=== PATIENT | male | born 1975 | race Two or more races ===

== ENCOUNTER → 2017-04-23 | Outpatient (CLI) | payer OTHER ==
[~2017-04-23] MED LIST: GADOBUTROL 7.5 MMOL/7.5 ML VIAL INT ART ONE; IOHEXOL 300 MG/ML 50 ML VIAL. INT ART ONE; LIDOCAINE 1% Multi-Dose 20 ML VIAL. ID ONE
--- NOTE | 2017-04-23 16:38 | KCIC ---
Examination: MR arthrogram left shoulder HISTORY: History of left shoulder pain, decreased range of motion COMPARISON: None available TECHNIQUE: Multiplanar, multisequence MR imaging of the left shoulder performed after arthrogram injection. Findings: The long head of the biceps tendon is within the bicipital groove. The attachment of the long head of the biceps tendon to superior labral anchor grossly appears intact. The attachment of the subscapularis tendon grossly appears intact. There is subtle increased T2 signal identified in the undersurface fibers of the anterior most fibers of the supraspinatus tendon measuring 8 mm in transverse dimension and 9 mm in AP dimension likely partial undersurface tear. No evidence of full-thickness rotator cuff tear identified. Mild acromioclavicular joint osteoarthrosis. The acromion is type II. The anterior aspect of the acromion abuts the superior aspect of the supraspinatus tendon. There is minimal superficial fraying of the superior labrum. Mild prominent appearing sublabial recess in the superior labrum. The muscle bulk grossly appears unremarkable. Fat is present within the rotator interval. IMPRESSION: 1. Subtle partial undersurface tear of the anterior fibers of the supraspinatus tendon measuring 9 mm. 2.The anterior aspect of the acromion abuts the superior aspect of the supraspinatus tendon. Correlate for impingement . 3. Minimal fraying of the superior labrum. Electronically signed by: Todd Estrada MD (04/23/2017 4:35 PM) [id number]
--- NOTE | 2017-04-23 17:11 | KCIC ---
Examination: Left shoulder arthrogram HISTORY: History of left shoulder pain, weakness COMPARISON: None available TECHNIQUE: Patient was brought to the fluoroscopic suite. Patient was explained the procedure. Informed consent was obtained after explaining the risks and benefits to the patient. The region of the left shoulder was marked. The region was prepped and draped in sterile fashion. Local anesthesia was achieved with 1 percent lidocaine. A 22-gauge spinal needle was advanced into the left shoulder joint under fluoroscopic guidance. Intra-articular injection of 12 mL of mixture of 5 mCi of lidocaine, 5 mL of Omnipaque 300, 10 mL of saline and 0.1 gadavist was injected. The needle was removed. Hemostasis was achieved. No immediate complications. Total fluoroscopic images 1. Total fluoroscopic time 30 seconds IMPRESSION: Left shoulder arthrogram injection for MRI. Electronically signed by: Todd Estrada MD (04/23/2017 5:07 PM) [id number]
== END | disposition home or self-care (01) ==
LOC: KCIC 13:38
PROVIDERS: ATTEND Family Medicine Sports Medicine
DX: M25.512 Pain in left shoulder (principal)
CPT/HCPCS: 73040; 73222; A9585; Q9967